=== PATIENT | female | born 1965 | race Caucasian/White ===

== ENCOUNTER 2019-12-30 21:45 | Inpatient (IN) ==
[2019-12-31] MEDS ORDERED: Insulin Regular, Human 100 UNIT/ML IV PRN ×2 (00:14)
[2019-12-31] MEDS ORDERED: Naloxone 0.4 MG/ML INJ IVP PRN (00:14)
[2019-12-31] MEDS ORDERED: D5% in 0.45% NACL 1,000 ML IVC PRN (00:14)
[2019-12-31] MEDS ORDERED: D5% in 0.45% NACL w KCl 20 MEQ/1,000 ML MLS IVC PRN (00:14)
[2019-12-31] MEDS ORDERED: *HR* Dextrose 50 % in Water (Syg) 50 ML SYRINGE IVP PRN (00:14)
[2019-12-31] MEDS ORDERED: 0.9 % Sodium Chloride 1,000 ML IVC PRN (00:15)
[2019-12-31] MEDS ORDERED: Insulin Human Regular 100 UNIT in 0.9 % Sodium Chloride 100 ML IVC SCH (00:15)
[2019-12-31 00:23] LABS: VBG HCO3 33 mEq/L (21-27); VBG PCO2 64 mmHg (41-51); VBG PH 7.31 pH Units (7.32-7.42); VBG PO2 50 mmHg (25-50)
[2019-12-31 00:28] LABS: Calcium 8.6 mg/dL (8.6-10.3); Potassium 2.6 mEq/L (3.5-5.1); Troponin I 0.06 ng/mL (< 0.04)
[2019-12-31 00:30] LABS: Basophils % 0.5 %; Eosinophils # 0.1 K/mcL (0.0-0.6); Eosinophils % 1.1 %; Hematocrit 37.9 % (35.3-44.9); Hemoglobin 13.4 g/dL (11.5-15.4); Immature Granulocytes % 0.4 % (0-4); Lymphocytes % 23.8 %; Mean Corpuscular HGB Conc 35.4 g/dL (31.6-35.5); Mean Corpuscular Hemoglobin 29.7 pg (28.0-33.3); Mean Platelet Volume 11.1 fL (9.4-12.4); Monocytes # 0.6 K/mcL (0.0-1.3); Monocytes % 6.4 %; Neutrophils # 5.8 K/mcL (1.6-8.9); Platelet Count 263 K/mcL (140-400); Red Blood Count 4.51 M/mcL (3.82-4.97); Red Cell Distribution Width 14.6 % (11.5-14.5); Segmented Neutrophils % 67.8 %; White Blood Count 8.5 K/mcL (4.3-11.1)
[2019-12-31 00:31] LABS: INR 1.1; Prothrombin Time 12.2 Seconds (9.4-12.1)
[2019-12-31 00:37] LABS: Albumin 3.7 g/dL (3.5-5.7); Albumin/Globulin Ratio 1.1 (1.1-2.2); Bilirubin,Direct 0.3 mg/dL (0.0-0.2); Bilirubin,Indirect 0.7 mg/dL (0.0-1.0); Globulin 3.4 g/dL (2.4-3.5); Magnesium 1.9 mg/dL (1.6-2.6); Phosphorous 3.7 mg/dL (2.7-4.5); Total Protein 7.1 g/dL (6.4-8.9)
[2019-12-31] MEDS ORDERED: Potassium Chloride Elixir 20 MEQ/15 ML UDC PO ONE (00:44)
[2019-12-31] MEDS: 0.45 % Sodium Chloride w/KCl 20 MEQ/1,000 ML MLS IVC PRN ×2 (01:21→07:30)
[2019-12-31] MEDS ORDERED: Aspirin Enteric Coated 325 MG Tablet PO ONE (02:24)
[2019-12-31 02:37] LABS: Calcium 8.6 mg/dL (8.6-10.3); Potassium 3.3 mEq/L (3.5-5.1)
[2019-12-31 03:04] LABS: Troponin I 0.07 ng/mL (< 0.04)
[2019-12-31 05:24] LABS: Bilirubin,Urine Negative (Negative); Blood,Urine Negative (Negative); Clarity,Urine Clear (Clear); Color,Urine Yellow (Yellow); Glucose,Urine (UA) 250 mg/dL (Normal); Ketones,Urine Negative (Negative); Leukocyte Esterase,Urine Negative (Negative); Nitrite,Urine Negative (Negative); PH,Urine 5.5 pH Units (5.0-8.0); Protein,Urine Negative (Neg-Trace); Specific Gravity,Urine 1.014 (1.010-1.025); Urobilinogen,Urine Normal (Normal)
[2019-12-31 06:37] LABS: Basophils % 0.3 %; Eosinophils # 0.2 K/mcL (0.0-0.6); Eosinophils % 2.7 %; Hematocrit 34.4 % (35.3-44.9); Hemoglobin 12.1 g/dL (11.5-15.4); Immature Granulocytes % 0.1 % (0-4); Lymphocytes # 2.1 K/mcL (0.6-4.6); Lymphocytes % 29.6 %; Mean Corpuscular HGB Conc 35.2 g/dL (31.6-35.5); Mean Corpuscular Hemoglobin 29.5 pg (28.0-33.3); Mean Corpuscular Volume 83.9 fL (83.0-100.0); Mean Platelet Volume 10.9 fL (9.4-12.4); Monocytes # 0.4 K/mcL (0.0-1.3); Monocytes % 6.3 %; Neutrophils # 4.3 K/mcL (1.6-8.9); Platelet Count 202 K/mcL (140-400); Red Cell Distribution Width 14.6 % (11.5-14.5)
[2019-12-31 06:58] LABS: Calcium 8.3 mg/dL (8.6-10.3); Potassium 2.8 mEq/L (3.5-5.1)
[2019-12-31 08:36] LABS: Estimated Average Glucose 235 mg/dl
[2019-12-31 09:56] LABS: Calcium 8.7 mg/dL (8.6-10.3); Potassium 2.9 mEq/L (3.5-5.1)
[2019-12-31] MEDS: Insulin LISPRO 300 UNITS/3 ML VIAL SQ SCH ×3 (11:40→20:19)
[2019-12-31] MEDS: 0.9 % Sodium Chloride 1,000 ML IVC SCH ×2 (14:10→23:59)
[2019-12-31] MEDS: Insulin NPH/REG 70/30 100 UNIT/ML (x5UNIT) SQ SCH (18:53)
[2020-01-01 04:34] LABS: Potassium 2.6 mEq/L (3.5-5.1)
[2020-01-01] MEDS: Insulin NPH/REG 70/30 100 UNIT/ML (x5UNIT) SQ SCH ×3 (08:45→17:23)
[2020-01-01] MEDS: Insulin LISPRO 300 UNITS/3 ML VIAL SQ SCH ×4 (08:45→21:15)
[2020-01-01] MEDS ORDERED: clonazePAM 1 MG TABLET PO PRN (10:53)
[2020-01-01] MEDS: Aspirin Enteric Coated 81 MG Tablet PO SCH (12:00)
[2020-01-01 13:54] LABS: Calcium 9.1 mg/dL (8.6-10.3)
[2020-01-01] MEDS ORDERED: Perflutren Lipid Microsphere 1.3 ML in 0.9 % Sodium Chloride 8.7 ML IVP ONE (15:04)
[2020-01-01] MEDS: carvediloL 25 MG TABLET PO SCH (16:05)
[2020-01-01] MEDS ORDERED: Bumetanide 1 MG TABLET PO SCH ×2 (17:00)
[2020-01-01] MEDS ORDERED: carvediloL 25 MG TABLET PO SCH (17:00)
[2020-01-01] MEDS: traZODone 50 MG TABLET PO SCH (21:15)
[2020-01-02 01:59] LABS: Calcium 9.4 mg/dL (8.6-10.3); Potassium 2.8 mEq/L (3.5-5.1)
[2020-01-02] MEDS: Insulin LISPRO 300 UNITS/3 ML VIAL SQ SCH ×4 (08:28→21:15)
[2020-01-02] MEDS: Magnesium Oxide 400 MG TABLET PO SCH (08:30)
[2020-01-02] MEDS: Aspirin Enteric Coated 81 MG Tablet PO SCH (08:30)
[2020-01-02] MEDS: carvediloL 25 MG TABLET PO SCH ×2 (08:30→16:43)
[2020-01-02] MEDS: PARoxetine 20 MG TABLET PO SCH (08:31)
[2020-01-02] MEDS: Isosorbide MONOnitrate (24 HR) 60 MG TAB.ER.24H PO SCH (08:31)
[2020-01-02] MEDS ORDERED: metOLazone 2.5 MG TABLET PO SCH (09:00)
[2020-01-02] MEDS ORDERED: Potassium Chloride Elixir 20 MEQ/15 ML UDC PO SCH (09:00)
[2020-01-02] MEDS ORDERED: (Ezetimibe [Zetia] 10 MG) PO SCH (09:00)
[2020-01-02] MEDS: Insulin NPH/REG 70/30 100 UNIT/ML (x5UNIT) SQ SCH ×3 (10:41→16:43)
[2020-01-02] MEDS: (Ezetimibe [Zetia] 10 MG) PO SCH (12:15)
[2020-01-02] MEDS ORDERED: Bumetanide 1 MG TABLET PO ONE (17:00)
[2020-01-02 17:14] LABS: Calcium 9.4 mg/dL (8.6-10.3)
[2020-01-02] MEDS: traZODone 50 MG TABLET PO SCH (21:17)
[2020-01-03 00:42] LABS: Hematocrit 41.2 % (35.3-44.9); Mean Corpuscular Hemoglobin 29.7 pg (28.0-33.3); Mean Corpuscular Volume 87.3 fL (83.0-100.0); Platelet Count 256 K/mcL (140-400); Red Blood Count 4.72 M/mcL (3.82-4.97); Red Cell Distribution Width 14.6 % (11.5-14.5); White Blood Count 7.9 K/mcL (4.3-11.1)
[2020-01-03 00:54] LABS: Calcium 9.6 mg/dL (8.6-10.3); Magnesium 1.5 mg/dL (1.6-2.6); Potassium 3.3 mEq/L (3.5-5.1)
[2020-01-03] MEDS ORDERED: Potassium Chloride Elixir 20 MEQ/15 ML UDC PO ONE (01:25)
[2020-01-03] MEDS ORDERED: D5% in Water 1,000 ML IVC PRN (02:10)
[2020-01-03] MEDS ORDERED: *HR* Dextrose 50 % in Water (Syg) 50 ML SYRINGE IVP PRN (02:10)
[2020-01-03] MEDS ORDERED: Dextrose Gel 15 GM/37.5 ML TUBE PO PRN ×2 (02:10)
[2020-01-03] MEDS: Magnesium Oxide 400 MG TABLET PO SCH (07:51)
[2020-01-03] MEDS: PARoxetine 20 MG TABLET PO SCH (07:51)
[2020-01-03] MEDS: Aspirin Enteric Coated 81 MG Tablet PO SCH (07:51)
[2020-01-03] MEDS: Isosorbide MONOnitrate (24 HR) 60 MG TAB.ER.24H PO SCH (07:51)
[2020-01-03] MEDS: Insulin LISPRO 300 UNITS/3 ML VIAL SQ SCH ×4 (07:52→21:19)
[2020-01-03] MEDS: carvediloL 25 MG TABLET PO SCH ×2 (07:52→17:03)
[2020-01-03] MEDS: Insulin NPH/REG 70/30 100 UNIT/ML (x5UNIT) SQ SCH ×3 (07:52→17:03)
[2020-01-03] MEDS: (Ezetimibe [Zetia] 10 MG) PO SCH (07:53)
[2020-01-03 08:44] LABS: Calcium 9.5 mg/dL (8.6-10.3); Potassium 3.5 mEq/L (3.5-5.1)
[2020-01-03] MEDS: Bumetanide 1 MG TABLET PO SCH ×2 (12:00→20:59)
[2020-01-03 17:48] LABS: Potassium 3.3 mEq/L (3.5-5.1)
[2020-01-03] MEDS: traZODone 50 MG TABLET PO SCH (20:59)
[2020-01-04 06:55] LABS: Calcium 8.8 mg/dL (8.6-10.3); Magnesium 1.5 mg/dL (1.6-2.6); Potassium 3.4 mEq/L (3.5-5.1)
[2020-01-04] MEDS: carvediloL 25 MG TABLET PO SCH ×2 (10:28→17:44)
[2020-01-04] MEDS: Aspirin Enteric Coated 81 MG Tablet PO SCH (10:28)
[2020-01-04] MEDS: PARoxetine 20 MG TABLET PO SCH (10:29)
[2020-01-04] MEDS: Bumetanide 1 MG TABLET PO SCH (10:29)
[2020-01-04] MEDS: Isosorbide MONOnitrate (24 HR) 60 MG TAB.ER.24H PO SCH (10:29)
[2020-01-04] MEDS: Insulin NPH/REG 70/30 100 UNIT/ML (x5UNIT) SQ SCH ×3 (10:29→17:44)
[2020-01-04] MEDS: Magnesium Oxide 400 MG TABLET PO SCH (10:30)
[2020-01-04] MEDS: (Ezetimibe [Zetia] 10 MG) PO SCH (10:30)
[2020-01-04] MEDS: Insulin LISPRO 300 UNITS/3 ML VIAL SQ SCH ×4 (10:31→21:08)
[2020-01-04 15:33] LABS: Calcium 8.5 mg/dL (8.6-10.3); Magnesium 1.8 mg/dL (1.6-2.6); Potassium 4.1 mEq/L (3.5-5.1)
[2020-01-04] MEDS ORDERED: Bumetanide 1 MG TABLET PO ONE (18:00)
[2020-01-04] MEDS: traZODone 50 MG TABLET PO SCH (21:07)
[2020-01-05 02:19] LABS: Calcium 8.6 mg/dL (8.6-10.3); Magnesium 1.5 mg/dL (1.6-2.6); Potassium 3.9 mEq/L (3.5-5.1)
[2020-01-05] MEDS ORDERED: *HR* Heparin 5,000 UNIT/ML VIAL SQ SCH (06:00)
[2020-01-05 07:07] VITALS: BP 140/88
[2020-01-05] MEDS: carvediloL 25 MG TABLET PO SCH (07:55)
[2020-01-05] MEDS: Magnesium Oxide 400 MG TABLET PO SCH (07:56)
[2020-01-05] MEDS: Isosorbide MONOnitrate (24 HR) 60 MG TAB.ER.24H PO SCH (07:56)
[2020-01-05] MEDS: Aspirin Enteric Coated 81 MG Tablet PO SCH (07:56)
[2020-01-05] MEDS: PARoxetine 20 MG TABLET PO SCH (07:56)
[2020-01-05] MEDS: Insulin LISPRO 300 UNITS/3 ML VIAL SQ SCH (07:57)
[2020-01-05] MEDS: Insulin NPH/REG 70/30 100 UNIT/ML (x5UNIT) SQ SCH (07:57)
[2020-01-05] MEDS: (Ezetimibe [Zetia] 10 MG) PO SCH (07:57)
[2020-01-05] MEDS ORDERED: Bumetanide 1 MG TABLET PO SCH (09:00)
== END 2020-01-05 10:45 | disposition home or self-care (01) | DRG 637 ==
LOC: 2NNU → 2ANU 01-02 13:34
PROVIDERS: ADMIT Internal Medicine; ATTEND Internal Medicine

== ENCOUNTER 2020-10-20 12:08 | Inpatient (IN) ==
[2020-10-20] MEDS ORDERED: Morphine Sulfate 2 MG/ML SYRINGE IVP ONE (12:30)
[2020-10-20 13:10] LABS: Basophils % 0.4 %; Eosinophils # 0.2 K/mcL (0.0-0.6); Eosinophils % 2.1 %; Hematocrit 39.4 % (35.3-44.9); Hemoglobin 12.7 g/dL (11.5-15.4); Immature Granulocytes % 0.1 % (0-4); Lymphocytes # 1.7 K/mcL (0.6-4.6); Lymphocytes % 23.8 %; Mean Corpuscular HGB Conc 32.2 g/dL (31.6-35.5); Mean Platelet Volume 9.9 fL (9.4-12.4); Monocytes # 0.4 K/mcL (0.0-1.3); Monocytes % 5.6 %; Neutrophils # 4.8 K/mcL (1.6-8.9); Platelet Count 234 K/mcL (140-400); Red Blood Count 4.38 M/mcL (3.82-4.97); Red Cell Distribution Width 14.6 % (11.5-14.5); White Blood Count 7.1 K/mcL (4.3-11.1)
[2020-10-20 13:27] LABS: Calcium 8.7 mg/dL (8.6-10.3); Potassium 3.4 mEq/L (3.5-5.1)
[2020-10-20 14:15] LABS: Adenovirus Not Detected (Not Detect); Bordetella Pertussis Not Detected (Not Detect); Chlamydophila pneumoniae Not Detected (Not Detect); Coronavirus 229E Not Detected (Not Detect); Coronavirus HKU1 Not Detected (Not Detect); Coronavirus NL63 Not Detected (Not Detect); Coronavirus OC43 Not Detected (Not Detect); Human Metapneumovirus Not Detected (Not Detect); Human Rhinovirus/Enterovirus Not Detected (Not Detect); Influenza A Subtype 2009 H1 Not Detected (Not Detect); Influenza B Not Detected (Not Detect); Mycoplasma pneumoniae Not Detected (Not Detect); Parainfluenza Virus 1 Not Detected (Not Detect); Parainfluenza Virus 2 Not Detected (Not Detect); Parainfluenza Virus 3 Not Detected (Not Detect); Parainfluenza Virus 4 Not Detected (Not Detect); Respiratory Syncytial Virus Not Detected (Not Detect); SARS-CoV-2 Not Detected (Not Detect)
[2020-10-20] MEDS ORDERED: Potassium Chloride Elixir 20 MEQ/15 ML UDC PO ONE (14:48)
[2020-10-20 15:00] LABS: Troponin I 0.04 ng/mL (< 0.04)
[2020-10-20] MEDS ORDERED: Acetaminophen 325 MG TABLET PO PRN (15:14)
[2020-10-20] MEDS ORDERED: Naloxone 0.4 MG/ML INJ IVP PRN (15:14)
[2020-10-20] MEDS ORDERED: *HR* HYDROcodone/Acet 5/325 mg TABLET PO PRN (15:14)
[2020-10-20] MEDS ORDERED: D5% in Water 1,000 ML IVC PRN (15:17)
[2020-10-20] MEDS ORDERED: Dextrose Gel 15 GM/37.5 ML TUBE PO PRN ×2 (15:18)
[2020-10-20] MEDS ORDERED: *HR* Dextrose 50 % in Water (Vial) 50 ML VIAL IVP PRN (15:18)
[2020-10-20] MEDS ORDERED: clonazePAM 1 MG TABLET PO PRN (15:58)
[2020-10-20] MEDS ORDERED: *HR* Metoprolol 5 MG/5 ML VIAL IVP ONE (16:11)
[2020-10-20] MEDS: carvediloL 25 MG TABLET PO SCH (16:24)
[2020-10-20] MEDS: *HR* OxyCODONE Immed Rel 5 MG TABLET PO PRN (16:24)
[2020-10-20] MEDS: Insulin LISPRO 300 UNITS/3 ML VIAL SQ SCH ×2 (16:24→20:14)
[2020-10-20] MEDS ORDERED: Bumetanide 1 MG TABLET PO SCH ×2 (17:00)
[2020-10-20] MEDS: *HR* Heparin 5,000 UNIT/ML VIAL SQ SCH (22:45)
[2020-10-21 03:29] LABS: Hematocrit 38.7 % (35.3-44.9); Hemoglobin 11.9 g/dL (11.5-15.4); Mean Corpuscular HGB Conc 30.7 g/dL (31.6-35.5); Mean Corpuscular Hemoglobin 28.6 pg (28.0-33.3); Mean Platelet Volume 9.9 fL (9.4-12.4); Platelet Count 207 K/mcL (140-400); Red Blood Count 4.16 M/mcL (3.82-4.97); Red Cell Distribution Width 14.8 % (11.5-14.5); White Blood Count 4.8 K/mcL (4.3-11.1)
[2020-10-21 03:51] LABS: Calcium 8.2 mg/dL (8.6-10.3); Chol/HDL Ratio 4.5 (0-4.9); Magnesium 1.6 mg/dL (1.6-2.6); Phosphorous 3.2 mg/dL (2.7-4.5); Potassium 3.4 mEq/L (3.5-5.1)
[2020-10-21 04:15] LABS: Estimated Average Glucose 189 mg/dl
[2020-10-21] MEDS: *HR* Heparin 5,000 UNIT/ML VIAL SQ SCH ×3 (04:23→20:04)
[2020-10-21] MEDS ORDERED: Bumetanide 1 MG TABLET PO SCH (08:00)
[2020-10-21] MEDS: Magnesium Oxide 400 MG TABLET PO SCH (08:11)
[2020-10-21] MEDS: PARoxetine 20 MG TABLET PO SCH (08:11)
[2020-10-21] MEDS: Aspirin Enteric Coated 81 MG Tablet PO SCH (08:12)
[2020-10-21] MEDS: carvediloL 25 MG TABLET PO SCH ×2 (08:12→16:45)
[2020-10-21] MEDS: Bumetanide 1 MG TABLET PO SCH ×2 (08:12→16:45)
[2020-10-21] MEDS: Isosorbide MONOnitrate (24 HR) 60 MG TAB.ER.24H PO SCH (08:12)
[2020-10-21] MEDS: Insulin LISPRO 300 UNITS/3 ML VIAL SQ SCH ×4 (08:12→20:04)
[2020-10-21] MEDS ORDERED: NON-FORMULARY MEDICATION 1 EACH EACH (Biotin 10,000 MCG) PO SCH (09:00)
[2020-10-21] MEDS ORDERED: Perflutren Lipid Microsphere 1.3 ML in 0.9 % Sodium Chloride 8.7 ML IVP PRN (12:27)
[2020-10-21] MEDS: *HR* OxyCODONE Immed Rel 5 MG TABLET PO PRN (16:54)
[2020-10-21] MEDS: amLODIPine 5 MG TABLET PO SCH (20:04)
[2020-10-21] MEDS ORDERED: traZODone 50 MG TABLET PO SCH (21:00)
[2020-10-22 01:11] LABS: Hematocrit 36.9 % (35.3-44.9); Hemoglobin 11.9 g/dL (11.5-15.4); Mean Corpuscular HGB Conc 32.2 g/dL (31.6-35.5); Mean Corpuscular Hemoglobin 29.4 pg (28.0-33.3); Mean Corpuscular Volume 91.1 fL (83.0-100.0); Mean Platelet Volume 9.8 fL (9.4-12.4); Platelet Count 193 K/mcL (140-400); Red Blood Count 4.05 M/mcL (3.82-4.97); Red Cell Distribution Width 14.6 % (11.5-14.5); White Blood Count 6.1 K/mcL (4.3-11.1)
[2020-10-22 01:34] LABS: Calcium 7.9 mg/dL (8.6-10.3); Magnesium 1.6 mg/dL (1.6-2.6); Potassium 3.6 mEq/L (3.5-5.1)
[2020-10-22] MEDS: *HR* Heparin 5,000 UNIT/ML VIAL SQ SCH ×3 (05:27→21:59)
[2020-10-22] MEDS: Magnesium Oxide 400 MG TABLET PO SCH (08:10)
[2020-10-22] MEDS: Bumetanide 1 MG TABLET PO SCH ×2 (08:10→17:14)
[2020-10-22] MEDS: Aspirin Enteric Coated 81 MG Tablet PO SCH (08:11)
[2020-10-22] MEDS: *HR* OxyCODONE Immed Rel 5 MG TABLET PO PRN ×2 (08:13→22:09)
[2020-10-22] MEDS: PARoxetine 20 MG TABLET PO SCH (08:14)
[2020-10-22] MEDS: carvediloL 25 MG TABLET PO SCH ×2 (08:14→17:14)
[2020-10-22] MEDS: Isosorbide MONOnitrate (24 HR) 60 MG TAB.ER.24H PO SCH (08:14)
[2020-10-22] MEDS: amLODIPine 5 MG TABLET PO SCH (08:14)
[2020-10-22] MEDS: Insulin LISPRO 300 UNITS/3 ML VIAL SQ SCH ×3 (08:16→17:16)
[2020-10-22] MEDS ORDERED: Cholecalciferol (D-3) 1,000 UNIT (25MCG) TABLET PO SCH (09:00)
[2020-10-22] MEDS ORDERED: Ascorbic Acid 500 MG TABLET PO SCH (09:00)
[2020-10-22] MEDS ORDERED: *HR* Propofol 200 MG/20 ML VIAL IVP ONE (20:23)
[2020-10-22] MEDS ORDERED: *HR* FentaNYL (PF) 100 MCG/2 ML VIAL ONE (20:23)
[2020-10-22] MEDS ORDERED: *HR* Midazolam HCl 2 MG/2 ML VIAL ONE (20:23)
[2020-10-22] MEDS ORDERED: traZODone 50 MG TABLET PO SCH (21:00)
[2020-10-22] MEDS ORDERED: *HR* HYDROcodone/Acet 5/325 mg TABLET PO PRN (21:20)
[2020-10-22] MEDS ORDERED: clonazePAM 1 MG TABLET PO PRN (21:20)
[2020-10-22] MEDS ORDERED: Dextrose Gel 15 GM/37.5 ML TUBE PO PRN ×2 (21:20)
[2020-10-22] MEDS ORDERED: *HR* Dextrose 50 % in Water (Vial) 50 ML VIAL IVP PRN (21:20)
[2020-10-22] MEDS ORDERED: Naloxone 0.4 MG/ML INJ IVP PRN (21:20)
[2020-10-22] MEDS ORDERED: D5% in Water 1,000 ML IVC PRN (21:20)
[2020-10-22] MEDS ORDERED: Acetaminophen 325 MG TABLET PO PRN (21:20)
[2020-10-23] MEDS: *HR* Heparin 5,000 UNIT/ML VIAL SQ SCH ×2 (05:32→12:42)
[2020-10-23] MEDS: Bumetanide 1 MG TABLET PO SCH ×2 (08:58→16:26)
[2020-10-23] MEDS: *HR* OxyCODONE Immed Rel 5 MG TABLET PO PRN ×2 (08:59→14:51)
[2020-10-23] MEDS: carvediloL 25 MG TABLET PO SCH ×2 (08:59→16:26)
[2020-10-23] MEDS ORDERED: Cholecalciferol (D-3) 1,000 UNIT (25MCG) TABLET PO SCH (09:00)
[2020-10-23] MEDS ORDERED: Aspirin Enteric Coated 81 MG Tablet PO SCH (09:00)
[2020-10-23] MEDS ORDERED: Isosorbide MONOnitrate (24 HR) 60 MG TAB.ER.24H PO SCH (09:00)
[2020-10-23] MEDS ORDERED: amLODIPine 5 MG TABLET PO SCH (09:00)
[2020-10-23] MEDS ORDERED: Insulin DETEMIR 100 UNIT/ML X5UNITS SQ SCH ×2 (09:00)
[2020-10-23] MEDS ORDERED: Magnesium Oxide 400 MG TABLET PO SCH (09:00)
[2020-10-23] MEDS ORDERED: Ascorbic Acid 500 MG TABLET PO SCH (09:00)
[2020-10-23] MEDS ORDERED: PARoxetine 20 MG TABLET PO SCH (09:00)
[2020-10-23] MEDS: Insulin LISPRO 300 UNITS/3 ML VIAL SQ SCH ×3 (09:08→16:26)
[2020-10-23 10:10] VITALS: BP 148/80
[2020-10-23] MEDS ORDERED: Insulin LISPRO 300 UNITS/3 ML VIAL SQ SCH (21:00)
== END 2020-10-23 16:54 | disposition home or self-care (01) | DRG 314 ==
LOC: 3NENU 12:08 → EMEROOARM 12:08 → SUATTDRO 14:50 → 3NENU 15:44
PROVIDERS: ADMIT Internal Medicine; ATTEND Pharmacist

== ENCOUNTER 2020-12-28 13:38 | Observation (INO) ==
[2020-12-28 14:41] LABS: Basophils # 0.1 K/mcL (0.0-0.2); Basophils % 0.5 %; Eosinophils # 0.1 K/mcL (0.0-0.6); Eosinophils % 1.4 %; Hematocrit 42.5 % (35.3-44.9); Hemoglobin 13.3 g/dL (11.5-15.4); Immature Granulocytes % 0.3 % (0-4); Lymphocytes # 1.8 K/mcL (0.6-4.6); Lymphocytes % 17.1 %; Mean Corpuscular HGB Conc 31.3 g/dL (31.6-35.5); Mean Corpuscular Hemoglobin 28.2 pg (28.0-33.3); Mean Platelet Volume 10.7 fL (9.4-12.4); Monocytes # 0.5 K/mcL (0.0-1.3); Monocytes % 4.7 %; Neutrophils # 7.8 K/mcL (1.6-8.9); Platelet Count 310 K/mcL (140-400); Red Blood Count 4.72 M/mcL (3.82-4.97); Red Cell Distribution Width 13.9 % (11.5-14.5); White Blood Count 10.3 K/mcL (4.3-11.1)
[2020-12-28 15:02] LABS: Calcium 9.2 mg/dL (8.6-10.3); Potassium 4.1 mEq/L (3.5-5.1)
[2020-12-28] MEDS ORDERED: Ampicillin 2 GM in 0.9 % Sodium Chloride Mini Bag 100 ML IVPB STA (15:22)
[2020-12-28] MEDS ORDERED: Naloxone 0.4 MG/ML INJ IVP PRN (15:54)
[2020-12-28] MEDS ORDERED: Ondansetron 4 MG/2 ML VIAL IVP PRN (15:54)
[2020-12-28] MEDS ORDERED: *HR* Dextrose 50 % in Water (Vial) 50 ML VIAL IVP PRN (16:21)
[2020-12-28] MEDS ORDERED: Dextrose Gel 15 GM/37.5 ML TUBE PO PRN ×2 (16:21)
[2020-12-28] MEDS ORDERED: D5% in Water 1,000 ML IVC PRN (16:21)
[2020-12-28] MEDS: Ampicillin/Sulbactam 1,500 MG in 0.9 % Sodium Chloride Mini Bag 100 ML IVPB SCH (19:24)
[2020-12-28] MEDS: *HR* Heparin 5,000 UNIT/ML VIAL SQ SCH (19:25)
[2020-12-28] MEDS: Insulin LISPRO 300 UNITS/3 ML VIAL SUBQ SCH (19:34)
[2020-12-28 20:31] LABS: Adenovirus Not Detected (Not Detect); Bordetella Pertussis Not Detected (Not Detect); Chlamydophila pneumoniae Not Detected (Not Detect); Coronavirus 229E Not Detected (Not Detect); Coronavirus HKU1 Not Detected (Not Detect); Coronavirus NL63 Not Detected (Not Detect); Coronavirus OC43 Not Detected (Not Detect); Human Metapneumovirus Not Detected (Not Detect); Human Rhinovirus/Enterovirus Not Detected (Not Detect); Influenza A Subtype 2009 H1 Not Detected (Not Detect); Influenza B Not Detected (Not Detect); Mycoplasma pneumoniae Not Detected (Not Detect); Parainfluenza Virus 1 Not Detected (Not Detect); Parainfluenza Virus 2 Not Detected (Not Detect); Parainfluenza Virus 3 Not Detected (Not Detect); Parainfluenza Virus 4 Not Detected (Not Detect); Respiratory Syncytial Virus Not Detected (Not Detect); SARS-CoV-2 Not Detected (Not Detect)
[2020-12-28] MEDS: Insulin DETEMIR 100 UNIT/ML X5UNITS SUBQ SCH (20:34)
[2020-12-28] MEDS ORDERED: Insulin LISPRO 300 UNITS/3 ML VIAL SUBQ SCH (21:00)
[2020-12-28] MEDS ORDERED: clonazePAM 1 MG TABLET PO SCH (23:45)
[2020-12-29] MEDS: Ampicillin/Sulbactam 1,500 MG in 0.9 % Sodium Chloride Mini Bag 100 ML IVPB SCH ×4 (00:31→20:32)
[2020-12-29] MEDS: *HR* Heparin 5,000 UNIT/ML VIAL SQ SCH ×2 (05:26→16:57)
[2020-12-29 06:02] LABS: Basophils % 0.6 %; Eosinophils # 0.2 K/mcL (0.0-0.6); Eosinophils % 2.7 %; Hemoglobin 13.1 g/dL (11.5-15.4); Immature Granulocytes % 0.3 % (0-4); Lymphocytes # 2.3 K/mcL (0.6-4.6); Lymphocytes % 32.7 %; Mean Corpuscular Hemoglobin 28.5 pg (28.0-33.3); Mean Corpuscular Volume 89.1 fL (83.0-100.0); Mean Platelet Volume 10.5 fL (9.4-12.4); Monocytes # 0.4 K/mcL (0.0-1.3); Monocytes % 5.3 %; Neutrophils # 4.1 K/mcL (1.6-8.9); Platelet Count 238 K/mcL (140-400); Segmented Neutrophils % 58.4 %
[2020-12-29 06:02] LABS: INR 1.1; Prothrombin Time 12.6 Seconds (9.4-12.1)
[2020-12-29 06:17] LABS: Calcium 8.5 mg/dL (8.6-10.3); Potassium 3.3 mEq/L (3.5-5.1)
[2020-12-29] MEDS: Insulin LISPRO 300 UNITS/3 ML VIAL SUBQ SCH ×3 (07:58→16:58)
[2020-12-29] MEDS: Insulin DETEMIR 100 UNIT/ML X5UNITS SUBQ SCH ×2 (07:59→20:43)
[2020-12-29] MEDS ORDERED: carvediloL 25 MG TABLET PO SCH (10:15)
[2020-12-29] MEDS ORDERED: Acetaminophen IV 1,000 MG/100 ML BAG IVPB ONE (11:48)
[2020-12-29] MEDS ORDERED: *HR* Propofol 200 MG/20 ML VIAL IVP ONE (11:54)
[2020-12-29] MEDS ORDERED: Lidocaine -MPF 2% 2 ML VIAL ONE (11:56)
[2020-12-29] MEDS ORDERED: Lidocaine HCL 4 ML Topical Solution (Laryng-O-Jet Kit Sterile Pak) TP ONE (11:56)
[2020-12-29] MEDS ORDERED: *HR* Succinylcholine 200 MG/10 ML VIAL IVP ONE (11:56)
[2020-12-29] MEDS ORDERED: Ipratropium/Albuterol Neb 3 ML IH SCH (12:00)
[2020-12-29] MEDS ORDERED: Lidocaine 1% 0 ML ONE (12:12)
[2020-12-29] MEDS ORDERED: Lidocaine 1% 20 ML MDV ONE (12:34)
[2020-12-29] MEDS ORDERED: Ondansetron 4 MG/2 ML VIAL IVP PRN (13:30)
[2020-12-29] MEDS ORDERED: Dextrose Gel 15 GM/37.5 ML TUBE PO PRN ×2 (13:30)
[2020-12-29] MEDS ORDERED: Naloxone 0.4 MG/ML INJ IVP PRN (13:30)
[2020-12-29] MEDS ORDERED: D5% in Water 1,000 ML IVC PRN (13:30)
[2020-12-29] MEDS ORDERED: *HR* Dextrose 50 % in Water (Vial) 50 ML VIAL IVP PRN (13:30)
[2020-12-29] MEDS ORDERED: Fluticasone Propionate Nasal 50 MCG/SPRAY BOTTLE NS PRN (13:56)
[2020-12-29] MEDS: Doxycycline 100 MG in 0.9 % Sodium Chloride Mini Bag 100 ML IVPB SCH (14:50)
[2020-12-29] MEDS: Ipratropium/Albuterol Neb 3 ML IH SCH ×2 (15:25→20:08)
[2020-12-29] MEDS: carvediloL 25 MG TABLET PO SCH (16:56)
[2020-12-29] MEDS ORDERED: Doxycycline 100 MG in 0.9 % Sodium Chloride Mini Bag 100 ML IVPB SCH (18:00)
[2020-12-29] MEDS: Magnesium Oxide 400 MG TABLET PO SCH (20:36)
[2020-12-29] MEDS ORDERED: Magnesium Oxide 400 MG TABLET PO SCH (21:00)
[2020-12-29] MEDS ORDERED: clonazePAM 1 MG TABLET PO SCH (21:00)
[2020-12-29] MEDS ORDERED: Insulin LISPRO 300 UNITS/3 ML VIAL SUBQ SCH (21:00)
[2020-12-29] MEDS ORDERED: Aspirin Enteric Coated 81 MG Tablet PO SCH ×2 (21:00)
[2020-12-29] MEDS ORDERED: traZODone 50 MG TABLET PO SCH ×2 (21:00)
[2020-12-30] MEDS: Ipratropium/Albuterol Neb 3 ML IH SCH ×4 (00:28→11:09)
[2020-12-30 01:49] LABS: Hematocrit 40.6 % (35.3-44.9); Hemoglobin 12.8 g/dL (11.5-15.4)
[2020-12-30 02:04] LABS: Calcium 8.7 mg/dL (8.6-10.3); Magnesium 1.8 mg/dL (1.6-2.6); Phosphorous 3.1 mg/dL (2.7-4.5); Potassium 3.9 mEq/L (3.5-5.1)
[2020-12-30] MEDS: Ampicillin/Sulbactam 1,500 MG in 0.9 % Sodium Chloride Mini Bag 100 ML IVPB SCH ×2 (02:18→08:14)
[2020-12-30] MEDS: Doxycycline 100 MG in 0.9 % Sodium Chloride Mini Bag 100 ML IVPB SCH (02:55)
[2020-12-30] MEDS: *HR* Heparin 5,000 UNIT/ML VIAL SQ SCH (05:53)
[2020-12-30 07:37] VITALS: BP 114/75
[2020-12-30] MEDS: Magnesium Oxide 400 MG TABLET PO SCH (08:11)
[2020-12-30] MEDS: carvediloL 25 MG TABLET PO SCH (08:15)
[2020-12-30] MEDS: Insulin LISPRO 300 UNITS/3 ML VIAL SUBQ SCH (08:19)
[2020-12-30] MEDS: Insulin DETEMIR 100 UNIT/ML X5UNITS SUBQ SCH (08:19)
[2020-12-30] MEDS ORDERED: (Ezetimibe [Zetia] 10 MG) PO SCH (09:00)
[2020-12-30] MEDS ORDERED: Isosorbide MONOnitrate (24 HR) 60 MG TAB.ER.24H PO SCH ×2 (09:00)
[2020-12-30] MEDS ORDERED: amLODIPine 5 MG TABLET PO SCH ×2 (09:00)
[2020-12-30] MEDS ORDERED: Cholecalciferol (D-3) 1,000 UNIT (25MCG) TABLET PO SCH ×2 (09:00)
[2020-12-30] MEDS ORDERED: PARoxetine 20 MG TABLET PO SCH ×2 (09:00)
[2020-12-30] MEDS ORDERED: Ascorbic Acid 500 MG TABLET PO SCH ×2 (09:00)
[2020-12-30] MEDS ORDERED: Loratadine 10 MG TABLET PO SCH ×2 (09:00)
== END 2020-12-30 12:09 | disposition home or self-care (01) ==
LOC: 3NENU 13:38 → EMEROOARM 13:38 → SUATTDRO 15:27 → 3NENU 15:51
PROVIDERS: ADMIT Internal Medicine; ATTEND Pharmacist

== ENCOUNTER 2021-06-18 06:56 | Observation (INO) ==
[2021-06-18] MEDS ORDERED: *HR* Midazolam HCl 2 MG/2 ML VIAL ONE (07:08)
[2021-06-18] MEDS ORDERED: *HR* Propofol 200 MG/20 ML VIAL IVP ONE (07:08)
[2021-06-18] MEDS ORDERED: *HR* FentaNYL (PF) 100 MCG/2 ML VIAL ONE ×2 (07:08→10:59)
[2021-06-18] MEDS ORDERED: Lidocaine -MPF 2% 2 ML VIAL ONE (07:09)
[2021-06-18] MEDS ORDERED: *HR* Succinylcholine 200 MG/10 ML VIAL IVP ONE (07:09)
[2021-06-18] MEDS ORDERED: Ropivacaine/PF 0.5% 30 ML VIAL ONE (07:13)
[2021-06-18] MEDS ORDERED: Famotidine 20 MG/2 ML VIAL IVP ONE (07:18)
[2021-06-18] MEDS ORDERED: Pregabalin 75 MG CAPSULE PO ONE (07:18)
[2021-06-18] MEDS ORDERED: *HR* Labetalol 20 MG/4 ML SYRINGE IVP PRN (07:18)
[2021-06-18] MEDS ORDERED: Acetaminophen IV 1,000 MG/100 ML BAG IVPB ONE (07:18)
[2021-06-18] MEDS ORDERED: *HR* HYDROmorphone 2 MG TABLET PO PRN (07:18)
[2021-06-18] MEDS ORDERED: CeFAZolin Syr 3,000MG/30 ML 3,000 MG/30 ML SYRINGE IVPB ONE (07:24)
[2021-06-18] MEDS ORDERED: *HR* OxyCODONE/APAP 5/325 TABLET PO ONE (07:41)
[2021-06-18] MEDS: Ringers Solution, Lactated 1,000 ML IVC SCH (07:51)
[2021-06-18 07:57] LABS: Basophils % 0.6 %; Eosinophils # 0.2 K/mcL (0.0-0.6); Eosinophils % 2.3 %; Hematocrit 36.8 % (35.3-44.9); Hemoglobin 11.7 g/dL (11.5-15.4); Immature Granulocytes % 0.6 % (0-4); Lymphocytes # 1.5 K/mcL (0.6-4.6); Lymphocytes % 21.3 %; Mean Corpuscular HGB Conc 31.8 g/dL (31.6-35.5); Mean Corpuscular Hemoglobin 28.7 pg (28.0-33.3); Mean Corpuscular Volume 90.2 fL (83.0-100.0); Mean Platelet Volume 9.8 fL (9.4-12.4); Monocytes # 0.5 K/mcL (0.0-1.3); Monocytes % 6.9 %; Neutrophils # 4.7 K/mcL (1.6-8.9); Platelet Count 216 K/mcL (140-400); Red Blood Count 4.08 M/mcL (3.82-4.97); Red Cell Distribution Width 14.5 % (11.5-14.5); Segmented Neutrophils % 68.3 %; White Blood Count 6.9 K/mcL (4.3-11.1)
[2021-06-18] MEDS ORDERED: Lidocaine -MPF 4% 5 ML AMPUL ONE (08:09)
[2021-06-18] MEDS ORDERED: *HR* Heparin 5,000 UNIT/ML VIAL ONE (08:13)
[2021-06-18] MEDS ORDERED: Bupivacaine 0.5%-Epi 1:200,000 50 ML VIAL ONE (08:34)
[2021-06-18] MEDS ORDERED: *HR* Rocuronium Bromide 50 MG/5 ML VIAL ONE (09:41)
[2021-06-18] MEDS ORDERED: EPHEDrine 50 MG/ML VIAL ONE (09:56)
[2021-06-18] MEDS ORDERED: Ondansetron 4 MG/2 ML VIAL ONE (10:13)
[2021-06-18] MEDS: *HR* HYDROmorphone (PF) 1 MG/ML SYRINGE IVP PRN ×2 (12:08→12:18)
[2021-06-18] MEDS: *HR* OxyCODONE Immed Rel 5 MG TABLET PO PRN ×2 (12:56→16:24)
[2021-06-18] MEDS ORDERED: Fluticasone Propionate Nasal 50 MCG/SPRAY BOTTLE NS PRN (16:52)
[2021-06-18] MEDS ORDERED: Ondansetron 4 MG/2 ML VIAL IVP PRN (17:29)
[2021-06-18] MEDS ORDERED: Naloxone 0.4 MG/ML INJ IVP PRN (17:29)
[2021-06-18] MEDS ORDERED: MOM Conc 10 ML UD.LIQ PO PRN (17:29)
[2021-06-18] MEDS ORDERED: Melatonin 3 MG TABLET PO PRN (17:29)
[2021-06-18] MEDS ORDERED: Dextrose Gel 15 GM/37.5 ML TUBE PO PRN ×2 (17:32)
[2021-06-18] MEDS ORDERED: D5% in Water 1,000 ML IVC PRN (17:32)
[2021-06-18] MEDS ORDERED: *HR* Dextrose 50 % in Water (Vial) 50 ML VIAL IVP PRN (17:32)
[2021-06-18] MEDS ORDERED: Ipratropium/Albuterol Neb 3 ML IH PRN (17:34)
[2021-06-18 19:54] LABS: Estimated Average Glucose 131 mg/dl; Hemoglobin A1C 6.2 %
[2021-06-18] MEDS: carvediloL 25 MG TABLET PO SCH (20:49)
[2021-06-18] MEDS: Acetaminophen 325 MG TABLET PO PRN (20:49)
[2021-06-18] MEDS: clonazePAM 1 MG TABLET PO SCH (20:49)
[2021-06-18] MEDS: traZODone 50 MG TABLET PO SCH (20:49)
[2021-06-18] MEDS: Aspirin Enteric Coated 81 MG Tablet PO SCH (20:49)
[2021-06-18] MEDS: Insulin LISPRO 300 UNITS/3 ML VIAL SUBQ SCH (20:50)
[2021-06-18] MEDS: Bumetanide 1 MG TABLET PO SCH (20:50)
[2021-06-18] MEDS: GLYCOPYRROLATE PO SCH (20:51)
[2021-06-18] MEDS: FORMOTEROL FUM PO SCH (20:51)
[2021-06-19 07:55] LABS: Basophils % 0.1 %; Hematocrit 35.8 % (35.3-44.9); Hemoglobin 11.7 g/dL (11.5-15.4); Immature Granulocytes % 0.5 % (0-4); Lymphocytes # 0.7 K/mcL (0.6-4.6); Lymphocytes % 6.8 %; Mean Corpuscular HGB Conc 32.7 g/dL (31.6-35.5); Mean Corpuscular Hemoglobin 29.7 pg (28.0-33.3); Mean Corpuscular Volume 90.9 fL (83.0-100.0); Mean Platelet Volume 10.6 fL (9.4-12.4); Monocytes # 0.5 K/mcL (0.0-1.3); Monocytes % 5.3 %; Neutrophils # 8.3 K/mcL (1.6-8.9); Platelet Count 198 K/mcL (140-400); Red Blood Count 3.94 M/mcL (3.82-4.97); Red Cell Distribution Width 14.3 % (11.5-14.5); Segmented Neutrophils % 87.3 %; White Blood Count 9.5 K/mcL (4.3-11.1)
[2021-06-19 08:34] LABS: Calcium 8.6 mg/dL (8.6-10.3); Magnesium 1.8 mg/dL (1.6-2.6); Phosphorous 4.4 mg/dL (2.7-4.5); Potassium 4.2 mEq/L (3.5-5.1)
[2021-06-19] MEDS: Insulin LISPRO 300 UNITS/3 ML VIAL SUBQ SCH ×4 (08:39→20:25)
[2021-06-19] MEDS: PARoxetine 20 MG TABLET PO SCH (08:43)
[2021-06-19] MEDS: amLODIPine 5 MG TABLET PO SCH (08:43)
[2021-06-19] MEDS: carvediloL 25 MG TABLET PO SCH ×2 (08:45→18:01)
[2021-06-19] MEDS: Loratadine 10 MG TABLET PO SCH (08:45)
[2021-06-19] MEDS: Bumetanide 1 MG TABLET PO SCH ×2 (08:45→18:01)
[2021-06-19] MEDS: clonazePAM 1 MG TABLET PO SCH ×2 (08:45→20:25)
[2021-06-19] MEDS: Isosorbide MONOnitrate (24 HR) 60 MG TAB.ER.24H PO SCH (08:46)
[2021-06-19] MEDS ORDERED: NON-FORMULARY MEDICATION 1 EACH EACH (Ezetimibe [Zetia] 10 MG Tablet) PO SCH (09:00)
[2021-06-19] MEDS: Acetaminophen 325 MG TABLET PO PRN (10:06)
[2021-06-19] MEDS: FORMOTEROL FUM PO SCH ×2 (11:27→20:25)
[2021-06-19] MEDS: GLYCOPYRROLATE PO SCH ×2 (11:27→20:25)
[2021-06-19] MEDS: Ringers Solution, Lactated 1,000 ML IVC SCH (12:33)
[2021-06-19] MEDS: Ketorolac 30 MG/ML VIAL IVP PRN ×2 (12:43→20:24)
[2021-06-19] MEDS: traZODone 50 MG TABLET PO SCH (20:25)
[2021-06-19] MEDS: Aspirin Enteric Coated 81 MG Tablet PO SCH (20:25)
[2021-06-20 07:37] LABS: Hematocrit 35.6 % (35.3-44.9); Hemoglobin 11.4 g/dL (11.5-15.4); Mean Corpuscular Hemoglobin 29.5 pg (28.0-33.3); Mean Platelet Volume 10.3 fL (9.4-12.4); Platelet Count 189 K/mcL (140-400); Red Blood Count 3.87 M/mcL (3.82-4.97); Red Cell Distribution Width 14.4 % (11.5-14.5); White Blood Count 6.7 K/mcL (4.3-11.1)
[2021-06-20 07:56] LABS: Calcium 8.4 mg/dL (8.6-10.3); Potassium 3.8 mEq/L (3.5-5.1)
[2021-06-20] MEDS: Ketorolac 30 MG/ML VIAL IVP PRN ×2 (09:31→19:54)
[2021-06-20] MEDS: amLODIPine 5 MG TABLET PO SCH (09:34)
[2021-06-20] MEDS: PARoxetine 20 MG TABLET PO SCH (09:35)
[2021-06-20] MEDS: Loratadine 10 MG TABLET PO SCH (09:35)
[2021-06-20] MEDS: carvediloL 25 MG TABLET PO SCH ×2 (09:35→17:20)
[2021-06-20] MEDS: Isosorbide MONOnitrate (24 HR) 60 MG TAB.ER.24H PO SCH (09:36)
[2021-06-20] MEDS: clonazePAM 1 MG TABLET PO SCH ×2 (09:36→19:55)
[2021-06-20] MEDS: Bumetanide 1 MG TABLET PO SCH ×2 (09:36→17:19)
[2021-06-20] MEDS: GLYCOPYRROLATE PO SCH ×2 (09:40→22:00)
[2021-06-20] MEDS: FORMOTEROL FUM PO SCH ×2 (09:40→22:00)
[2021-06-20] MEDS: Insulin LISPRO 300 UNITS/3 ML VIAL SUBQ SCH ×4 (09:40→19:56)
[2021-06-20] MEDS: levoFLOXacin 750 MG/150 ML 750 MG/150 ML BAG IVPB SCH (19:54)
[2021-06-20] MEDS: traZODone 50 MG TABLET PO SCH (19:55)
[2021-06-20] MEDS: Aspirin Enteric Coated 81 MG Tablet PO SCH (19:56)
[2021-06-20] MEDS ORDERED: Insulin DETEMIR 100 UNIT/ML X5UNITS SUBQ SCH (21:00)
[2021-06-21 03:25] LABS: Hematocrit 33.8 % (35.3-44.9); Hemoglobin 10.7 g/dL (11.5-15.4); Mean Corpuscular HGB Conc 31.7 g/dL (31.6-35.5); Mean Corpuscular Hemoglobin 28.8 pg (28.0-33.3); Mean Corpuscular Volume 90.9 fL (83.0-100.0); Mean Platelet Volume 10.5 fL (9.4-12.4); Platelet Count 183 K/mcL (140-400); Red Blood Count 3.72 M/mcL (3.82-4.97); Red Cell Distribution Width 14.3 % (11.5-14.5); White Blood Count 5.8 K/mcL (4.3-11.1)
[2021-06-21 03:41] LABS: Calcium 8.3 mg/dL (8.6-10.3); Potassium 3.4 mEq/L (3.5-5.1)
[2021-06-21 06:43] VITALS: PULSE 67
[2021-06-21] MEDS ORDERED: Potassium Chloride Elixir 20 MEQ/15 ML UDC PO ONE (07:28)
[2021-06-21] MEDS ORDERED: Calcium Gluconate 1gm/50mL 1 GM/50 ML BAG IVPB ONE (07:28)
[2021-06-21] MEDS: Isosorbide MONOnitrate (24 HR) 60 MG TAB.ER.24H PO SCH (07:38)
[2021-06-21] MEDS: Bumetanide 1 MG TABLET PO SCH (07:38)
[2021-06-21] MEDS: levoFLOXacin 750 MG/150 ML 750 MG/150 ML BAG IVPB SCH (07:39)
[2021-06-21] MEDS: Loratadine 10 MG TABLET PO SCH (07:39)
[2021-06-21] MEDS: carvediloL 25 MG TABLET PO SCH (07:39)
[2021-06-21] MEDS: amLODIPine 5 MG TABLET PO SCH (07:39)
[2021-06-21] MEDS: clonazePAM 1 MG TABLET PO SCH (07:39)
[2021-06-21] MEDS: PARoxetine 20 MG TABLET PO SCH (07:39)
[2021-06-21] MEDS: Insulin LISPRO 300 UNITS/3 ML VIAL SUBQ SCH ×2 (07:40→13:04)
[2021-06-21] MEDS: Ringers Solution, Lactated 1,000 ML IVC SCH (09:04)
[2021-06-21 10:12] VITALS: O2SAT 94
[2021-06-21] MEDS: Ketorolac 30 MG/ML VIAL IVP PRN (10:17)
[2021-06-21 10:57] VITALS: BP 129/75; TEMP 97.5
[2021-06-21] MEDS: GLYCOPYRROLATE PO SCH (12:58)
[2021-06-21] MEDS: FORMOTEROL FUM PO SCH (12:58)
== END 2021-06-21 16:20 | disposition home or self-care (01) ==
LOC: SUATTDRO → 3NENU 06:56 → SAMDAY 06:56 → 3NENU 18:33
PROVIDERS: ADMIT Student in an Organized Health Care Education/Training Program; ATTEND Internal Medicine

== ENCOUNTER 2022-03-24 15:14 | Observation (INO) ==
[2022-03-24] MEDS ORDERED: Ipratropium/Albuterol Neb 3 ML IH ONE (16:13)
[2022-03-24 17:07] LABS: Calcium 8.6 mg/dL (8.6-10.3); Potassium 4.1 mEq/L (3.5-5.1); Troponin I 0.04 ng/mL (< 0.04)
[2022-03-24 17:18] LABS: Basophils % 0.2 %; Eosinophils % 0.2 %; Hematocrit 39.3 % (35.3-44.9); Hemoglobin 12.9 g/dL (11.5-15.4); Immature Granulocytes % 0.4 % (0-4); Lymphocytes # 0.6 K/mcL (0.6-4.6); Lymphocytes % 9.8 %; Mean Corpuscular HGB Conc 32.8 g/dL (31.6-35.5); Mean Corpuscular Hemoglobin 29.4 pg (28.0-33.3); Mean Corpuscular Volume 89.5 fL (83.0-100.0); Mean Platelet Volume 10.6 fL (9.4-12.4); Monocytes # 0.2 K/mcL (0.0-1.3); Monocytes % 3.6 %; Neutrophils # 4.8 K/mcL (1.6-8.9); Platelet Count 252 K/mcL (140-400); Red Blood Count 4.39 M/mcL (3.82-4.97); Red Cell Distribution Width 14.6 % (11.5-14.5); Segmented Neutrophils % 85.8 %; White Blood Count 5.6 K/mcL (4.3-11.1)
[2022-03-24 17:19] LABS: Influenza A PCR Negative (Negative); Influenza B PCR Negative (Negative); Resp. Syncytial Virus PCR Negative (Negative)
[2022-03-24 17:20] LABS: SARS-CoV-2 by PCR (In House) Negative (Negative)
[2022-03-24] MEDS ORDERED: Furosemide 40 MG/4 ML VIAL IVP ONE (18:19)
[2022-03-24] MEDS ORDERED: *HR* Heparin 5,000 UNIT/ML VIAL IVP ONE (18:43)
[2022-03-24] MEDS ORDERED: *HR* Heparin 5,000 UNIT/ML VIAL IVP PRN ×2 (18:43)
[2022-03-24 19:09] LABS: Hematocrit 39.5 % (35.3-44.9); Hemoglobin 12.9 g/dL (11.5-15.4); Mean Corpuscular HGB Conc 32.7 g/dL (31.6-35.5); Mean Corpuscular Hemoglobin 29.7 pg (28.0-33.3); Mean Platelet Volume 10.2 fL (9.4-12.4); Platelet Count 234 K/mcL (140-400); Red Blood Count 4.34 M/mcL (3.82-4.97); Red Cell Distribution Width 14.6 % (11.5-14.5); White Blood Count 4.5 K/mcL (4.3-11.1)
[2022-03-24 19:26] LABS: INR 1.2; Prothrombin Time 13.1 Seconds (9.4-12.1)
[2022-03-24 19:29] LABS: Activated Partial Thrombo Time 28.4 Seconds (26.0-36.0)
[2022-03-24 19:31] LABS: Heparin anti-factor XA UFH < 0.04 IU/mL (0.30-0.70)
[2022-03-24] MEDS ORDERED: Acetaminophen 325 MG TABLET PO PRN (19:43)
[2022-03-24] MEDS ORDERED: Ondansetron 4 MG/2 ML VIAL IVP PRN (19:43)
[2022-03-24] MEDS ORDERED: Naloxone 0.4 MG/ML INJ IVP PRN (19:43)
[2022-03-24] MEDS: Heparin 25,000UNIT/250ML 1/2NS 25,000 UNIT/250 ML IV.SOLN IVC SCH (20:20)
[2022-03-24] MEDS ORDERED: *HR* Dextrose 50 % in Water (Syg) 50 ML SYRINGE IVP PRN (20:44)
[2022-03-24] MEDS ORDERED: Fluticasone Propionate Nasal 50 MCG/SPRAY BOTTLE NS PRN (20:44)
[2022-03-24] MEDS ORDERED: Dextrose 4 GM Chewable Tablets PO PRN ×2 (20:44)
[2022-03-24] MEDS ORDERED: D5% in Water 1,000 ML IVC PRN (20:44)
[2022-03-24 21:53] LABS: Bilirubin,Urine Negative (Negative); Blood,Urine Trace (Negative); Clarity,Urine Clear (Clear); Color,Urine Colorless (Yellow); Glucose,Urine (UA) 500 mg/dL (Normal); Ketones,Urine Negative (Negative); Leukocyte Esterase,Urine Negative (Negative); Mucus,Urine Few per lpf (None-Few); Nitrite,Urine Negative (Negative); Protein,Urine Trace mg/dL (Neg-Trace); RBC,Urine 0-3 per hpf (0-3); Specific Gravity,Urine 1.008 (1.010-1.025); Squamous Epithelial Cell,Urine Few per hpf (None-Few); Urobilinogen,Urine Normal (Normal); WBC,Urine 0-3 per hpf (0-3)
[2022-03-24] MEDS ORDERED: Perflutren Lipid Microsphere 1.3 ML in 0.9 % Sodium Chloride 8.7 ML IVP PRN (21:54)
[2022-03-24] MEDS: clonazePAM 1 MG TABLET PO SCH (22:42)
[2022-03-24] MEDS: Aspirin Enteric Coated 81 MG Tablet PO SCH (22:42)
[2022-03-24] MEDS: traZODone 50 MG TABLET PO SCH (22:42)
[2022-03-25 00:06] LABS: Adenovirus Not Detected (Not Detect); Bordetella Pertussis Not Detected (Not Detect); Chlamydophila pneumoniae Not Detected (Not Detect); Coronavirus 229E Not Detected (Not Detect); Coronavirus HKU1 Not Detected (Not Detect); Coronavirus NL63 Not Detected (Not Detect); Coronavirus OC43 Not Detected (Not Detect); Human Metapneumovirus DETECTED (Not Detect); Human Rhinovirus/Enterovirus Not Detected (Not Detect); Influenza A Subtype 2009 H1 Not Detected (Not Detect); Influenza B Not Detected (Not Detect); Mycoplasma pneumoniae Not Detected (Not Detect); Parainfluenza Virus 1 Not Detected (Not Detect); Parainfluenza Virus 2 Not Detected (Not Detect); Parainfluenza Virus 3 Not Detected (Not Detect); Parainfluenza Virus 4 Not Detected (Not Detect); Respiratory Syncytial Virus Not Detected (Not Detect); SARS-CoV-2 Not Detected (Not Detect)
[2022-03-25 06:05] LABS: Basophils % 0.6 %; Eosinophils % 0.3 %; Hematocrit 42.6 % (35.3-44.9); Hemoglobin 13.8 g/dL (11.5-15.4); Heparin anti-factor XA UFH 0.94 IU/mL (0.30-0.70); INR 1.1; Immature Granulocytes % 0.6 % (0-4); Lymphocytes # 1.4 K/mcL (0.6-4.6); Lymphocytes % 40.6 %; Mean Corpuscular HGB Conc 32.4 g/dL (31.6-35.5); Mean Corpuscular Hemoglobin 29.7 pg (28.0-33.3); Mean Corpuscular Volume 91.6 fL (83.0-100.0); Mean Platelet Volume 10.6 fL (9.4-12.4); Monocytes # 0.2 K/mcL (0.0-1.3); Monocytes % 6.1 %; Neutrophils # 1.8 K/mcL (1.6-8.9); Platelet Count 230 K/mcL (140-400); Prothrombin Time 12.7 Seconds (9.4-12.1); Red Blood Count 4.65 M/mcL (3.82-4.97); Red Cell Distribution Width 14.8 % (11.5-14.5); Segmented Neutrophils % 51.8 %; White Blood Count 3.5 K/mcL (4.3-11.1)
[2022-03-25 06:25] LABS: Estimated Average Glucose 171 mg/dl; Hemoglobin A1C 7.6 %
[2022-03-25 06:42] LABS: Platelet Estimate Normal (Normal); Reactive Lymphocytes Present (Not Present)
[2022-03-25] MEDS: predniSONE 20 MG TABLET PO SCH (08:27)
[2022-03-25] MEDS: PARoxetine 20 MG TABLET PO SCH (08:28)
[2022-03-25] MEDS: levoFLOXacin 750 MG TABLET PO SCH (08:28)
[2022-03-25] MEDS: Isosorbide MONOnitrate (24 HR) 60 MG TAB.ER.24H PO SCH (08:28)
[2022-03-25] MEDS: Furosemide 40 MG/4 ML VIAL IVP SCH ×2 (08:28→21:38)
[2022-03-25] MEDS: Insulin LISPRO 300 UNITS/3 ML VIAL SUBQ SCH ×3 (08:28→17:34)
[2022-03-25] MEDS: clonazePAM 1 MG TABLET PO SCH ×2 (08:28→21:38)
[2022-03-25] MEDS: *HR* Insulin Regular U-500 500 UNIT/ML SUBQ SCH ×3 (08:35→17:34)
[2022-03-25] MEDS ORDERED: NON-FORMULARY MEDICATION 1 EACH EACH (Ezetimibe [Zetia] 10 MG Tablet) PO SCH (09:00)
[2022-03-25] MEDS: Heparin 25,000UNIT/250ML 1/2NS 25,000 UNIT/250 ML IV.SOLN IVC SCH (10:10)
[2022-03-25 10:19] LABS: Thyroid Stimulating Hormone 0.795 mcIU/mL (0.340-5.600); Troponin I 0.03 ng/mL (< 0.04)
[2022-03-25 12:02] LABS: Albumin 3.7 g/dL (3.5-5.7); Albumin/Globulin Ratio 1.2 (1.1-2.2); Bilirubin,Indirect 0.6 mg/dL (0.0-1.0); Bilirubin,Total 0.6 mg/dL (0.3-1.0); Calcium 8.4 mg/dL (8.6-10.3); Globulin 3.1 g/dL (2.4-3.5); Magnesium 1.8 mg/dL (1.6-2.6); Phosphorous 3.8 mg/dL (2.7-4.5); Potassium 3.9 mEq/L (3.5-5.1); Total Protein 6.8 g/dL (6.4-8.9)
[2022-03-25] MEDS: traZODone 50 MG TABLET PO SCH (21:35)
[2022-03-25] MEDS: Aspirin Enteric Coated 81 MG Tablet PO SCH (21:38)
[2022-03-26] MEDS: Heparin 25,000UNIT/250ML 1/2NS 25,000 UNIT/250 ML IV.SOLN IVC SCH ×2 (00:39→11:31)
[2022-03-26] MEDS: Insulin LISPRO 300 UNITS/3 ML VIAL SUBQ SCH ×3 (09:37→16:50)
[2022-03-26] MEDS: levoFLOXacin 750 MG TABLET PO SCH (09:48)
[2022-03-26] MEDS: PARoxetine 20 MG TABLET PO SCH (09:48)
[2022-03-26] MEDS: predniSONE 20 MG TABLET PO SCH (09:48)
[2022-03-26] MEDS: Isosorbide MONOnitrate (24 HR) 60 MG TAB.ER.24H PO SCH (09:48)
[2022-03-26] MEDS: *HR* Insulin Regular U-500 500 UNIT/ML SUBQ SCH ×3 (09:48→16:57)
[2022-03-26] MEDS: clonazePAM 1 MG TABLET PO SCH ×2 (09:49→20:03)
[2022-03-26] MEDS: *HR* Heparin 5,000 UNIT/ML VIAL SQ SCH (16:57)
[2022-03-26] MEDS: Metoprolol XL (24 HR) Succ 25 MG TAB.ER.24H PO SCH (16:57)
[2022-03-26] MEDS: Furosemide 20 MG TABLET PO SCH (16:57)
[2022-03-26 17:06] LABS: Basophils % 0.2 %; Eosinophils % 0.2 %; Hematocrit 38.7 % (35.3-44.9); Hemoglobin 12.4 g/dL (11.5-15.4); Immature Granulocytes % 0.4 % (0-4); Lymphocytes % 15.5 %; Mean Corpuscular Hemoglobin 29.7 pg (28.0-33.3); Mean Corpuscular Volume 92.8 fL (83.0-100.0); Mean Platelet Volume 10.2 fL (9.4-12.4); Monocytes # 0.1 K/mcL (0.0-1.3); Monocytes % 2.9 %; Neutrophils # 3.9 K/mcL (1.6-8.9); Platelet Count 246 K/mcL (140-400); Red Blood Count 4.17 M/mcL (3.82-4.97); Red Cell Distribution Width 14.3 % (11.5-14.5); Segmented Neutrophils % 80.8 %; White Blood Count 4.8 K/mcL (4.3-11.1)
[2022-03-26 17:17] LABS: Lymphocytes # 0.7 K/mcL (0.6-4.6)
[2022-03-26 17:25] LABS: Albumin 3.5 g/dL (3.5-5.7); Albumin/Globulin Ratio 1.2 (1.1-2.2); Bilirubin,Total 0.4 mg/dL (0.3-1.0); Calcium 8.7 mg/dL (8.6-10.3); Globulin 2.9 g/dL (2.4-3.5); Potassium 3.7 mEq/L (3.5-5.1); Total Protein 6.4 g/dL (6.4-8.9)
[2022-03-26 17:48] LABS: Large Platelets Present (Not Present); Platelet Estimate Normal (Normal); Reactive Lymphocytes Present (Not Present)
[2022-03-26] MEDS: Benzonatate 100 MG CAPSULE PO PRN (20:02)
[2022-03-26] MEDS: Aspirin Enteric Coated 81 MG Tablet PO SCH (20:03)
[2022-03-26] MEDS: traZODone 50 MG TABLET PO SCH (20:03)
[2022-03-27] MEDS: *HR* Heparin 5,000 UNIT/ML VIAL SQ SCH ×2 (05:46→17:15)
[2022-03-27 05:48] LABS: Basophils % 0.2 %; Eosinophils % 0.2 %; Hematocrit 38.5 % (35.3-44.9); Hemoglobin 12.1 g/dL (11.5-15.4); Immature Granulocytes % 0.4 % (0-4); Lymphocytes % 24.9 %; Mean Corpuscular HGB Conc 31.4 g/dL (31.6-35.5); Mean Corpuscular Hemoglobin 29.2 pg (28.0-33.3); Mean Platelet Volume 10.5 fL (9.4-12.4); Monocytes # 0.3 K/mcL (0.0-1.3); Monocytes % 5.6 %; Neutrophils # 3.4 K/mcL (1.6-8.9); Platelet Count 202 K/mcL (140-400); Red Blood Count 4.14 M/mcL (3.82-4.97); Red Cell Distribution Width 14.1 % (11.5-14.5); Segmented Neutrophils % 68.7 %
[2022-03-27 05:51] LABS: Lymphocytes # 1.3 K/mcL (0.6-4.6)
[2022-03-27 06:09] LABS: Albumin 3.4 g/dL (3.5-5.7); Albumin/Globulin Ratio 1.1 (1.1-2.2); Bilirubin,Total 0.3 mg/dL (0.3-1.0); Calcium 8.6 mg/dL (8.6-10.3); Globulin 3.1 g/dL (2.4-3.5); Potassium 3.6 mEq/L (3.5-5.1); Total Protein 6.5 g/dL (6.4-8.9)
[2022-03-27 06:15] LABS: Platelet Estimate Normal (Normal)
[2022-03-27] MEDS ORDERED: Regadenoson 0.4 MG/5 ML SYRINGE IVP ONE (07:18)
[2022-03-27] MEDS: Insulin LISPRO 300 UNITS/3 ML VIAL SUBQ SCH ×3 (08:33→17:16)
[2022-03-27] MEDS: levoFLOXacin 750 MG TABLET PO SCH (08:33)
[2022-03-27] MEDS: *HR* Insulin Regular U-500 500 UNIT/ML SUBQ SCH ×3 (08:33→17:15)
[2022-03-27] MEDS: predniSONE 20 MG TABLET PO SCH (08:33)
[2022-03-27] MEDS: Furosemide 20 MG TABLET PO SCH ×2 (08:33→17:15)
[2022-03-27] MEDS: PARoxetine 20 MG TABLET PO SCH (08:33)
[2022-03-27] MEDS: clonazePAM 1 MG TABLET PO SCH ×2 (08:34→21:09)
[2022-03-27] MEDS: Metoprolol XL (24 HR) Succ 25 MG TAB.ER.24H PO SCH (08:34)
[2022-03-27] MEDS: Isosorbide MONOnitrate (24 HR) 60 MG TAB.ER.24H PO SCH (12:23)
[2022-03-27] MEDS: Aspirin Enteric Coated 81 MG Tablet PO SCH (21:04)
[2022-03-27] MEDS: traZODone 50 MG TABLET PO SCH (21:05)
[2022-03-27] MEDS: Benzonatate 100 MG CAPSULE PO PRN (21:09)
[2022-03-28 01:49] LABS: Basophils % 0.3 %; Eosinophils % 0.5 %; Hematocrit 39.2 % (35.3-44.9); Hemoglobin 12.5 g/dL (11.5-15.4); Immature Granulocytes % 0.8 % (0-4); Lymphocytes # 1.4 K/mcL (0.6-4.6); Lymphocytes % 21.3 %; Mean Corpuscular HGB Conc 31.9 g/dL (31.6-35.5); Mean Corpuscular Hemoglobin 28.9 pg (28.0-33.3); Mean Corpuscular Volume 90.5 fL (83.0-100.0); Mean Platelet Volume 10.1 fL (9.4-12.4); Monocytes # 0.3 K/mcL (0.0-1.3); Neutrophils # 4.6 K/mcL (1.6-8.9); Platelet Count 247 K/mcL (140-400); Red Blood Count 4.33 M/mcL (3.82-4.97); Red Cell Distribution Width 13.8 % (11.5-14.5); Segmented Neutrophils % 72.1 %; White Blood Count 6.4 K/mcL (4.3-11.1)
[2022-03-28 02:12] LABS: Albumin 3.5 g/dL (3.5-5.7); Albumin/Globulin Ratio 1.3 (1.1-2.2); Bilirubin,Total 0.4 mg/dL (0.3-1.0); Globulin 2.7 g/dL (2.4-3.5); Potassium 3.4 mEq/L (3.5-5.1); Total Protein 6.2 g/dL (6.4-8.9)
[2022-03-28] MEDS: *HR* Heparin 5,000 UNIT/ML VIAL SQ SCH ×2 (05:32→16:54)
[2022-03-28] MEDS: Insulin LISPRO 300 UNITS/3 ML VIAL SUBQ SCH ×3 (07:01→16:56)
[2022-03-28] MEDS: *HR* Insulin Regular U-500 500 UNIT/ML SUBQ SCH ×3 (07:02→16:55)
[2022-03-28] MEDS: clonazePAM 1 MG TABLET PO SCH ×2 (08:34→20:42)
[2022-03-28] MEDS: predniSONE 20 MG TABLET PO SCH (08:34)
[2022-03-28] MEDS: PARoxetine 20 MG TABLET PO SCH (08:34)
[2022-03-28] MEDS: levoFLOXacin 750 MG TABLET PO SCH (08:35)
[2022-03-28] MEDS: Metoprolol XL (24 HR) Succ 25 MG TAB.ER.24H PO SCH (08:35)
[2022-03-28] MEDS: Isosorbide MONOnitrate (24 HR) 60 MG TAB.ER.24H PO SCH (08:35)
[2022-03-28] MEDS: Furosemide 20 MG TABLET PO SCH ×2 (08:35→16:54)
[2022-03-28] MEDS ORDERED: Albuterol 2.5 MG/3 ML NEBULIZER IH PRN (10:53)
[2022-03-28] MEDS: Albuterol 2.5 MG/3 ML NEBULIZER IH SCH ×4 (15:27→23:00)
[2022-03-28] MEDS: traZODone 50 MG TABLET PO SCH (20:41)
[2022-03-28] MEDS: Aspirin Enteric Coated 81 MG Tablet PO SCH (20:41)
[2022-03-29] MEDS: Albuterol 2.5 MG/3 ML NEBULIZER IH SCH ×4 (03:37→16:26)
[2022-03-29] MEDS: *HR* Heparin 5,000 UNIT/ML VIAL SQ SCH (05:58)
[2022-03-29] MEDS: Insulin LISPRO 300 UNITS/3 ML VIAL SUBQ SCH ×2 (07:34→11:32)
[2022-03-29] MEDS: predniSONE 20 MG TABLET PO SCH (08:09)
[2022-03-29] MEDS: Isosorbide MONOnitrate (24 HR) 60 MG TAB.ER.24H PO SCH (08:09)
[2022-03-29] MEDS: clonazePAM 1 MG TABLET PO SCH (08:09)
[2022-03-29] MEDS: PARoxetine 20 MG TABLET PO SCH (08:09)
[2022-03-29] MEDS: Furosemide 20 MG TABLET PO SCH (08:09)
[2022-03-29] MEDS: *HR* Insulin Regular U-500 500 UNIT/ML SUBQ SCH ×2 (08:12→12:24)
[2022-03-29] MEDS ORDERED: Metoprolol XL (24 HR) Succ 25 MG TAB.ER.24H PO SCH (09:00)
[2022-03-29] MEDS ORDERED: levoFLOXacin 750 MG TABLET PO ONE (09:00)
[2022-03-29 10:20] VITALS: BP 123/72; PULSE 61; TEMP 97.7
[2022-03-29 11:22] VITALS: O2SAT 90
[2022-03-29] MEDS ORDERED: Bumetanide 1 MG TABLET PO SCH (17:00)
[2022-03-30] MEDS ORDERED: amLODIPine 5 MG TABLET PO SCH (09:00)
== END 2022-03-29 16:31 | disposition home or self-care (01) ==
LOC: 3BNU 15:14 → EMEROOARM 15:14 → SUATTDRO 18:54 → 3BNU 20:32
PROVIDERS: ADMIT Internal Medicine; ATTEND Nurse Practitioner